=== PATIENT | female | born 1985 | race Caucasian/White ===

== ENCOUNTER 2019-06-01 12:24 | Outpatient (CLI) | payer BC ==
[~2019-06-01 12:24] MED LIST: Iopamidol 300 61% 100 ML VIAL FS ONE
--- NOTE | 2019-06-01 15:06 | RAD ---
Hysterosalpingogram: DATE: 06/01/2019 HISTORY: 33-year-old female with infertility. TECHNIQUE: Signed informed consent obtained. Standard sterile procedure. Located speculum placed into the vagina l cavity. External cervical os swabbed with Betadine with cognitive applicators twice. Sterile HSG catheter advanced to external os and cervical canal into the endometrial cavity. Balloon inflated. Io dinated contrast injected. Fluoroscopic spot images obtained. Balloon deflated. Catheter removed. Speculum removed. Patient tolerated the procedure well. No complications. FINDINGS: The endometrial cavity has smooth, normal margins. There is mild, gentle, broad indentation of the mi dline portion of the upper portion of the endometrial cavity. Bilateral fallopian tubes are normal in caliber and morphology. There is bilateral free spillage of contrast into the peritoneal cavity. IMPRESSION: 1. Mild arcuate uterus. 2. Otherwise normal.
== END 2019-06-01 12:25 | disposition home or self-care (01) ==
LOC: RAD 12:24
PROVIDERS: ATTEND Nurse Practitioner Family
DX: N97.1 Female infertility of tubal origin (principal); Q51.810 Arcuate uterus
CPT/HCPCS: 58340; 74740; Q9967